=== PATIENT | male | born 1955 | race Caucasian/White ===

== ENCOUNTER → 2017-07-22 | Outpatient (CLI) | payer OTHER ==
[~2017-07-22] MED LIST: ANXIETY PILL; ATIVAN0.5 MG PO; DILANTIN100 MG PO; LEVOTHYROXINE100 MCG PO; LORAZEPAM0.5 MG PO; NAPROSYN375 MG PO; NORCO 5/3251 TABLET PO; PERCOCET 5/31 TABLET PO; PHENOBARBITAL32.4 MG PO; SYNTHROID25 MCG PO; TOPROL XL25 MG PO; TYLENOL WITH C1 EACH PO
== END | disposition home or self-care (01) ==
LOC: AMB 12:43
PROC: 8E0YXY8 Suture Removal from Lower Extremity (ICD-10-PCS; principal; 2017-07-22)
DX: Z48.02 Encounter for removal of sutures (principal); Z85.828 Personal history of other malignant neoplasm of skin; F17.200 Nicotine dependence, unspecified, uncomplicated
CPT/HCPCS: 99212

== ENCOUNTER 2017-08-06 02:22 | Emergency (ER) | payer OTHER ==
[~2017-08-06] VITALS: Ht 182.9 cm; Wt 58.2 kg
[2017-08-06 04:13] VITALS: BP 155/80
== END 2017-08-06 04:12 | disposition home or self-care (01) ==
LOC: EME 02:22
PROC: 0HQ0XZZ Repair Scalp Skin, External Approach (ICD-10-PCS; principal; 2017-08-06)
DX: S01.01XA Laceration without foreign body of scalp, initial encounter (principal); W01.190A Fall on same level from slipping, tripping and stumbling with subsequent striking against furniture, initial encounter; I10 Essential (primary) hypertension; R56.9 Unspecified convulsions; E03.9 Hypothyroidism, unspecified; Z86.73 Personal history of transient ischemic attack (TIA), and cerebral infarction without residual deficits; F17.200 Nicotine dependence, unspecified, uncomplicated
CPT/HCPCS: 70450; 99281; 99283